=== PATIENT | female | born 1980 | race Hispanic/Latino ===

== ENCOUNTER 2018-10-18 06:56 | Day surgery (SDC) | payer OTHER ==
[2018-10-17 13:23] LABS: BASOPHILS % (AUTO) 0.5 % (0.0-5.0); EOSINOPHILS % (AUTO) 1.1 % (0.0-8.0); HEMATOCRIT 38.7 % (36-48); MEAN CORPUSCULAR HEMOGLOBIN 31.5 pg (27.0-33.0); MEAN CORPUSCULAR HGB CONC 34.5 g/dL (32.0-36.0); MEAN CORPUSCULAR VOLUME 91.2 fL (79-99); MONOCYTES % (AUTO) 5.1 % (3.0-13.0); NEUTROPHILS % (AUTO) 46.3 % (40.0-77.0); PLATELET COUNT (AUTO) 180 K/uL (130-400); RED BLOOD CELL COUNT(AUTO) 4.24 MIL/uL (4.00-5.50); RED CELL DISTRIBUTION WIDTH 12.5 % (11.0-15.5); WHITE BLOOD COUNT (AUTO) 7.3 K/uL (4.8-10.8)
[2018-10-17 13:32] VITALS: BP 138/66
[~2018-10-18] VITALS: Ht 157.5 cm; Wt 72.4 kg
[~2018-10-18 06:56] MED LIST: LACTATED RINGERS 1000ML 1,000 ML IV SCH; MULT-40 PO
[2018-10-18 07:20] VITALS: BP 134/74
--- NOTE | 2018-10-18 07:56 | NUR ---
VALUABLES: CLOTHING, CELL PHONE AND PURSE GIVEN SPOUSE - SHYLA FULLER.
[2018-10-18] MEDS ORDERED: DEXAMETHASONE SOD PHOSPHATE 10MG/ML 1ML VIAL ONE (08:17)
[2018-10-18] MEDS ORDERED: PROPOFOL 10 MG/ML 20ML VIAL IV ONE ×2 (08:17→08:28)
[2018-10-18] MEDS ORDERED: MIDAZOLAM HCL 1 MG/ML 2ML VIAL ONE (08:17)
[2018-10-18] MEDS ORDERED: FENTANYL CITRATE PF 50 MCG/1 ML 2ML VIAL ONE (08:17)
[2018-10-18] MEDS ORDERED: LIDOCAINE PF 2% 5ML ABBOJECT ONE (08:17)
[2018-10-18] MEDS ORDERED: ONDANSETRON HCL 4 MG/2 ML VIAL ONE (08:17)
[2018-10-18] MEDS ORDERED: OXYTOCIN 10 USP UNITS/ML ONE (08:46)
[2018-10-18] MEDS ORDERED: CALDOLOR 800MG+NS 250ML 250 ML IV ONE (09:32)
[2018-10-18] MEDS ORDERED: METHYLERGONOVINE MALEATE 0.2 MG/1 ML ML ONE (09:39)
[2018-10-18 10:48] VITALS: BP 121/75
[2018-10-18 11:03] VITALS: BP 111/62
[2018-10-18 11:26] VITALS: BP 115/60
== END 2018-10-18 11:26 | disposition home or self-care (01) ==
LOC: DAH 06:56
DX: O03.4 Incomplete spontaneous abortion without complication (principal); Z88.2 Allergy status to sulfonamides; Z98.890 Other specified postprocedural states
CPT/HCPCS: 36415; 59812; 85025; 88305; A4510; A4600; A4606; J1100; J1741; J2001; J2210; J2250; J2405; J2590; J2704 ×2; J3010; J7120